=== PATIENT | female | born 1980 | race Caucasian/White ===

== ENCOUNTER → 2018-02-16 14:14 | Outpatient (CLI) | payer OTHER, SELFPAY ==
[2018-02-16 14:40] LABS: Add Manual Diff / Slide Review NO; Basophils Percent Auto 0.3 % (0-2); Eosinophils Percent Auto 1.9 % (2-4); Hematocrit 38.3 % (36-46); Hemoglobin 13.3 g/dL (12.0-16.0); Lymphocytes Percent Auto 20.3 % (25-40); Mean Corpuscular HGB Conc 34.6 % (30-36); Mean Corpuscular Hemoglobin 33.6 PG (26-34); Monocytes Percent Auto 7.6 % (3-14); Neutrophils Absolute Auto 5600 /uL (3000-5900); Neutrophils Percent Auto 69.9 % (50-75); Platelet Count 192 X10^3/uL (150-400); Red Blood Cell Count 3.95 X10^6/uL (4.0-5.2); Red Cell Distribution Width 12.2 % (11.6-14.8); White Blood Cell Count 7.9 X10^3/uL (4.5-11.0)
[2018-02-16 14:43] LABS: Appearance Urine UA SL CLOUDY; Bilirubin Urine UA NEGATIVE (NEGATIVE); Color Urine UA YELLOW; Glucose Urine UA NEGATIVE (Normal); Ketones Urine UA NEGATIVE (NEGATIVE); Leukocyte Esterase Urine UA NEGATIVE (NEGATIVE); Nitrite Urine UA Negative (Negative); Occult Blood Urine UA NEGATIVE (Negative); Protein Urine UA NEGATIVE (Negative); Urobilinogen Urine UA 0.2 E.U./dL (0.2); pH Urine UA 6.5 (4.5-8.0)
[2018-02-16 17:51] LABS: Hepatitis B Surface Antigen NEGATIVE s/c (NEGATIVE)
[2018-02-16 17:52] LABS: Rubella Antibody IgG 13.1 IU/mL (>15)
[2018-02-16 18:07] LABS: HIV 1 and 2 Antibody NEGATIVE (NEGATIVE); Hep C Virus Ab w/Reflex Quant NEGATIVE s/c (NEGATIVE)
[2018-02-19 02:24] LABS: HSV 2 IGG AB < 0.90 index (< 0.90); HSV1IGG < 0.90 index (< 0.90)
[2018-02-24 20:55] LABS: Rapid Plasma Reagin NON-REACTIVE
== END ==
PROVIDERS: Visit Provider Obstetrics & Gynecology
DX: Z34.81 Encounter for supervision of other normal pregnancy, first trimester (principal); Z3A.01 Less than 8 weeks gestation of pregnancy
CPT/HCPCS: 36415; 80055; 81003; 86695; 86696; 86703; 86787; 86803; 86850; 86900; 86901; 87086

== ENCOUNTER → 2018-03-03 11:21 | Outpatient (CLI) | payer OTHER, SELFPAY ==
[2018-03-03 11:38] LABS: Specimen Label NATERA
== END ==
PROVIDERS: Visit Provider Obstetrics & Gynecology
DX: O09.521 Supervision of elderly multigravida, first trimester (principal)
CPT/HCPCS: 36415

== ENCOUNTER → 2018-04-27 12:43 | Outpatient (CLI) | payer OTHER, SELFPAY ==
[2018-05-03 13:42] LABS: AFP, Serum 30.9 ng/mL; Calc Gestational Age 17.9; Est Date Determined by NOT GIVEN; Maternal Weight 192 lbs; Number of Fetuses NOT GIVEN; Prev Pregnancies Down Syndrome N
== END ==
PROVIDERS: Visit Provider Obstetrics & Gynecology
DX: Z34.82 Encounter for supervision of other normal pregnancy, second trimester (principal)
CPT/HCPCS: 36415; 82105

== ENCOUNTER → 2018-05-25 07:33 | Outpatient (CLI) | payer OTHER, SELFPAY ==
--- NOTE | 2018-05-25 07:34 | DI.US.S_ITS ---
PROCEDURE: US OB >= 14 WEEKS FETUS INDICATIONS: anatomy survey OUTSIDE/PRIOR DATING DATA: Last menstrual period (LMP): Unknown. LMP-based estimated date of delivery (RISA): N./A.. First dating scan (date and location): 02/04/18. Estimated date of delivery (RISA) from first dating scan: 09/29/18. TECHNIQUE: Real-time scanning was performed of the fetus, with image documentation and biometric measurements. Endovaginal scanning: No COMPARISON: [facility], , OB <= 14 WEEKS FETUS, 03/28/2018, 14:05. FINDINGS: General: A single living intrauterine gestation is present. Presentation: Breech. Placenta: Placental position is posterior, without previa. Amniotic fluid index: 15.6 cm, normal range is 5-24 cm. heart rate: 141 beats per minute. Maternal cervical canal: 3.0 cm long. Normal lower limit is 2.5 cm. biometrics: Biparietal diameter: 22 weeks 3 days Head circumference: 22 weeks 3 days Abdominal circumference: 22 weeks 4 days Femur length: 23 weeks 1 day Estimated gestational age from initial scan: 21 weeks 6 days Composite gestational age from present scan: 22 weeks 5 days Estimated weight and percentile: 534 g; 88 percentile Measurement variability for biometric dating: +/- 7 days from 14 weeks to 15 weeks 6 days gestation, +/- 10 days from 16 weeks to 21 weeks 6 days gestation, +/- 2 weeks from 22 weeks to 27 weeks 6 days gestation, +/- 3 weeks for 28 weeks gestation or later. weight reference: 4500 g or EFW >90/95% is considered macrosomia or large for gestational age. EFW <10% is small for gestational age. EFW 5% or less is considered intra-uterine growth restriction. Anatomic survey: Neuro: Ventricles are non-dilated at less than 10 mm. Cisterna magna is normal at 3-11 mm. Cerebellum is normal in size and morphology. Nuchal skin fold: Normal at less than 6 mm between 14-21 weeks gestational age. Face: Nose and lips, facial profile are normal. Spine: No evidence for spina bifida. Heart: 4-chambered heart is present, with normal ventricular outflow tracts. Diaphragm: Diaphragm is intact. Stomach: Left-sided stomach is present. Kidneys: No hydronephrosis. Normal is less than 5 mm in 2nd trimester, less than 7 mm in 3rd trimester. Cord: 3-vessel cord has orthotopic insertion. Bladder: Normal in size. Extremities: All 4 extremities identified. IMPRESSION: 1. Single living IUP demonstrated and interval growth is upper limits of normal with estimated weight 88th percentile. 2. Normal anatomic survey. Dictated by: Renny Wolfe [facility] Interpreted: Son Cook MD on 05/25/2018 at 8:44 Approved by: Son Cook M.D. on 05/25/2018 at 10:09
== END ==
PROVIDERS: Visit Provider Obstetrics & Gynecology
DX: Z34.82 Encounter for supervision of other normal pregnancy, second trimester (principal)
CPT/HCPCS: 76811

== ENCOUNTER → 2018-06-07 10:36 | Outpatient (CLI) | payer OTHER, SELFPAY ==
[2018-06-07 12:11] LABS: Hematocrit 37.1 % (36-46); Hemoglobin 12.6 g/dL (12.0-16.0)
[2018-06-07 12:24] LABS: GTT (PREG) 1 Hour PP 50gm Dose 133 mg/dL (76-139)
== END ==
PROVIDERS: PCP Physician Assistant Medical; Visit Provider Obstetrics & Gynecology
DX: Z34.82 Encounter for supervision of other normal pregnancy, second trimester (principal)
CPT/HCPCS: 36415; 82950; 85014; 85018

== ENCOUNTER 2018-06-21 15:00 | Outpatient (CLI) | payer OTHER, SELFPAY ==
[2018-06-21 16:56] LABS: Fetal Fibronectin Negative
== END 2018-06-21 16:15 | disposition home or self-care (01) ==
LOC: LABOR 15:52 → OB 06-23 16:53
PROVIDERS: PCP Physician Assistant Medical; Visit Provider Obstetrics & Gynecology
DX: Z03.71 Encounter for suspected problem with amniotic cavity and membrane ruled out (principal); Z3A.25 25 weeks gestation of pregnancy
CPT/HCPCS: 59025; 59050; 82731; 84112; G0378; G0379

== ENCOUNTER 2018-08-30 11:58 | Outpatient (CLI) | payer OTHER, SELFPAY | END 2018-08-30 12:32 | disposition home or self-care (01) | LOC: LABOR 12:31 → OB 14:11 | PROVIDERS: PCP Physician Assistant Medical; Visit Provider Obstetrics & Gynecology | DX: O26.893 Other specified pregnancy related conditions, third trimester (principal); R10.30 Lower abdominal pain, unspecified; Z3A.35 35 weeks gestation of pregnancy | CPT/HCPCS: 59025; G0378; G0379 ==

== ENCOUNTER → 2018-09-06 11:25 | Outpatient (CLI) | payer OTHER, SELFPAY ==
[2018-09-07 09:35] LABS: Strep Grp B PCR POS for Grp B Strep
== END ==
PROVIDERS: PCP Physician Assistant Medical; Visit Provider Obstetrics & Gynecology
DX: Z34.83 Encounter for supervision of other normal pregnancy, third trimester (principal)
CPT/HCPCS: 87653

== ENCOUNTER 2018-09-06 12:12 | Outpatient (CLI) | payer OTHER, SELFPAY ==
--- NOTE | 2018-09-06 18:27 | PM.OBTRLD ---
Visit Information Visit Information Date of evaluation: 09/06/18 Primary OB Provider: Marianne Bronson Reason for Evaluation: Yes non-stress test non-stress test reason: decreased movement PFSH Social History Smoking Status: Never smoker Social History Smoking Status: Never smoker Evaluation Evaluation Baseline heart rate: 135 Variability: Moderate (11-25) monitor accelerations: Present monitor decelerations: Absent Category of Tracing: I Diagnosis, Plan/Disposition Final Diagnosis (1) 36 weeks gestation of : Current Visit: Yes Status: Acute (2) Decreased movement affecting management of mother, antepartum: Current Visit: Yes Status: Acute Plan/Disposition Plan: Discharge to home Follow up 1 week [facility] Disposition: home
== END 2018-09-06 12:45 | disposition home or self-care (01) ==
LOC: LABOR 12:30 → OB 09-07 13:55
PROVIDERS: PCP Physician Assistant Medical; Visit Provider Obstetrics & Gynecology
DX: O36.8130 Decreased fetal movements, third trimester, not applicable or unspecified (principal); Z3A.36 36 weeks gestation of pregnancy
CPT/HCPCS: 59025; 87653; G0378; G0379

== ENCOUNTER 2018-09-09 08:25 | Outpatient (CLI) | payer OTHER, SELFPAY | END 2018-09-09 09:25 | disposition home or self-care (01) | LOC: OB 12:33 | PROVIDERS: PCP Physician Assistant Medical; Visit Provider Obstetrics & Gynecology | DX: O47.1 False labor at or after 37 completed weeks of gestation (principal); Z3A.37 37 weeks gestation of pregnancy | CPT/HCPCS: 59025; 84112; G0378; G0379 ==

== ENCOUNTER 2018-09-13 15:14 | Outpatient (CLI) | payer OTHER, SELFPAY | END 2018-09-13 16:15 | disposition home or self-care (01) | LOC: LABOR 16:11 → OB 09-15 10:47 | PROVIDERS: PCP Physician Assistant Medical; Visit Provider Obstetrics & Gynecology | DX: O36.8130 Decreased fetal movements, third trimester, not applicable or unspecified (principal); Z3A.37 37 weeks gestation of pregnancy | CPT/HCPCS: 59025; G0378; G0379 ==

== ENCOUNTER 2018-09-21 06:51 | Inpatient (IN) | payer OTHER, SELFPAY ==
[2018-09-21] MEDS: LACTATED RINGERS 1,000 ML 100 ML IV ×2 (08:29→11:53)
[2018-09-21] MEDS: OXYTOCIN PREMIX 30 UNIT/500 ML PLAST..BAG IV (08:29)
[2018-09-21] MEDS: PENICILLIN G POTASSIUM 5,000,000 UNIT in DEXTROSE 5% IN WATER 250 ML IV (08:31)
[2018-09-21 08:32] LABS: Add Manual Diff / Slide Review NO; Basophils Absolute Auto 0 /uL (0-100); Basophils Percent Auto 0.2 % (0-2); Eosinophils Absolute Auto 100 /uL (0-450); Eosinophils Percent Auto 0.6 % (2-4); Hematocrit 34.7 % (36-46); Lymphocytes Absolute Auto 1300 /uL (1100-4500); Mean Corpuscular HGB Conc 34.7 % (30-36); Mean Corpuscular Hemoglobin 31.8 PG (26-34); Mean Corpuscular Volume 91.6 fL (80-100); Monocytes Absolute Auto 600 /uL (0-900); Monocytes Percent Auto 6.8 % (3-14); Neutrophils Absolute Auto 6200 /uL (1500-7000); Neutrophils Percent Auto 76.4 % (50-75); Platelet Count 152 X10^3/uL (150-400); Red Blood Cell Count 3.79 X10^6/uL (4.0-5.2); Red Cell Distribution Width 14.1 % (11.6-14.8); White Blood Cell Count 8.2 X10^3/uL (4.5-11.0)
[2018-09-21 08:34] VITALS: BP 120/71
[2018-09-21] MEDS: PENICILLIN G POTASSIUM 3,000,000 UNIT/50 ML FROZ.PIGGY 100 UNIT IV ×2 (12:32→18:36)
--- NOTE | 2018-09-21 18:58 | PM.OBHP.1 ---
OB HPI Date/Time Date of admission: 09/21/18 Date Patient Seen: 09/21/18 Time Patient Seen: 07:40 History of Present Condition Chief complaint: labor & delivery : 3 Para: 2 Estimated Date of Delivery: 09/29/18 Estimated Gestational Age (weeks): 39 Narrative: Ирина Galaviz is a 37 year old female 3 para 2 at estimated gestational age of 39 weeks gestation for induction of labor due to advanced maternal age Indications Indication for induction OB: other (advanced maternal age) History of Present care: good care, initiated at week # (8), number of visits (9) and pounds weight gain (14) Dating criteria: LMP confirmed by 1st trimester US Ultrasounds: normal 1st trimester US and normal mid trimester US Obstetrical complications: none Medical complications: none Preadmission Labs Blood type: O (+) positive -: Antibody screen: negative, GBS status: positive, HBsAG: negative, HIV: negative, HSV 1: negative, HSV 2: negative and RPR/VDLR: negative -: Chlamydia screen: not detected and Gonorrhea screen: not detected -: Rubella: not immune and Varicella: immune HCT: 37.1 HCAB: reactive PAP: Normal Cell-free DNA: normal Urine: negative 1 hr GTT: 133 Prior (ies) History: 2 Evaluation Evaluation Baseline heart rate: 135 Variability: Moderate (11-25) monitor accelerations: Present monitor decelerations: Absent Contraction Frequency (minutes): 8 Uterine Contraction Intensity: Mild Category of Tracing: I Cervical dilation (cm): 2 station: -1 Laboratory results: Laboratory Tests 09/21/18 09/21/18 07:45 07:45 WBC 8.2 RBC 3.79 L Hgb 12.0 Hct 34.7 L MCV 91.6 MCH 31.8 MCHC 34.7 RDW 14.1 Plt Count 152 Neut % (Auto) 76.4 H Lymph % (Auto) 16.0 L [place] % (Auto) 6.8 Eos % (Auto) 0.6 L Baso % (Auto) 0.2 Neut # (Auto) 6200 Lymph # (Auto) 1300 [place] # (Auto) 600 Eos # (Auto) 100 Baso # (Auto) 0 Blood Type O Positive Antibody Screen Negative PFSH Social History Smoking Status: Former smoker Social History Smoking Status: Former smoker Meds Home Medications Medication Instructions Recorded Confirmed Type vitamins no.68-iron 28 1 cap PO DAILY #30 cap 02/04/18 09/21/18 Rx mg-folate no.6 1 mg-dha 400 mg capsule breast pump #1 each 07/19/18 09/21/18 Rx Allergies Allergy/AdvReac Type Severity Reaction Status Date / Time NSAIDS (Non-Steroidal Allergy Mild Anaphylaxis Verified 02/16/18 14:28 Anti-Inflamma Exam Vital Signs (past 8 hours): Generally: No acute distress Lungs: Clear to auscultation bilaterally Cardiovascular: Regular rate and rhythm Fundal height: 40 cm Estimated weight 8-1/2 lb Extremities: Negative Homans, no edema Objective Labs Result Diagrams: 09/21/18 07:45 Labs: Laboratory Results - last 24 hr 09/21/18 09/21/18 07:45 07:45 WBC 8.2 RBC 3.79 L Hgb 12.0 Hct 34.7 L MCV 91.6 MCH 31.8 MCHC 34.7 RDW 14.1 Plt Count 152 Neut % (Auto) 76.4 H Lymph % (Auto) 16.0 L [place] % (Auto) 6.8 Eos % (Auto) 0.6 L Baso % (Auto) 0.2 Neut # (Auto) 6200 Lymph # (Auto) 1300 [place] # (Auto) 600 Eos # (Auto) 100 Baso # (Auto) 0 Blood Type O Positive Antibody Screen Negative Assessment and Plan Assessment and Plan Assessment and Plan narrative: Assessment: 37-year-old 3 para 2 at estimated gestational age of 39 weeks gestation for induction of labor due to advanced maternal age GBS positive Plan: GBS prophylaxis Pitocin per protocol 2 Epidural as necessary Rupture of membranes mid morning Expected management to spontaneous vaginal delivery Time Spent with Patient Total time spent with greater than 50% in coordination of care (as documented) at patient's floor/unit and/or counseling patient:: 15-24 minutes
--- NOTE | 2018-09-21 19:08 | PM.OBPRVD ---
Delivery date: 09/21/18 Intrapartal events: Intolerance Cervical ripening method: none Induction method: per pitocin protocol Delivery augmentation: rupture of membranes Delivery monitor: external FHT and external uterine Route of delivery: vacuum extraction Indication for instrumentation: nonreassuring FHR tracing (deep variable decelerations) Episiotomy description: None L&D Laceration Description: None Estimated blood loss (mL): 150 Anesthesia type: Epidural Complications: None Narrative: Patient complete and pushed for about 20 minutes. At 5:37 p.m., a live female delivered with vacuum assistance over an intact perineum. The vacuum was placed due to deep variable decelerations with pushing. No nuchal cord. The remainder of the body delivered without difficulty and was placed on mom's abdomen. after the cord stopped pulsing, the cord was double clamped and cut. Cord bloods were obtained. The placenta delivered intact with a 3 vessel cord at 5:47 p.m.. Pitocin was given in the IV fluids before the placenta delivered. Estimated blood loss 150 cc. Apgars 9 at 1 minute and 9 at 5 minutes. No perineal or vaginal tears. Epidural analgesia. . Mom and infant stable to recovery.
[2018-09-22] MEDS: OXYCODONE/ACETAMINOPHEN 5/325 TABLET 1 TAB PO ×2 (01:15→07:16)
[2018-09-22 07:03] LABS: Hematocrit 37.2 % (36-46); Hemoglobin 12.8 g/dL (12.0-16.0)
[2018-09-22] MEDS: DOCUSATE 250 MG CAPSULE PO (09:32)
[2018-09-22] MEDS: OXYCODONE/ACETAMINOPHEN 5/325 TABLET 2 TAB PO ×2 (12:34→16:18)
[2018-09-22 16:05] VITALS: BP 120/69; PULSE 62; RESP 16; TEMP 37
[2018-09-22] MEDS: MEASLES,MUMPS,RUBELLA VACC/PF 0.5 ML VIAL SUBCUT (17:50)
--- NOTE | 2018-09-25 20:10 | PM.OBDS.1 ---
Discharge Providers Date of admission: 09/21/18 06:51 Discharge Date: 09/22/18 Primary care physician: Anita Suarez PA-C Consults: 09/21/18 18:38 Consult to Merchandising Manager Routine Comment: Discharge provider: Marianne Bronson MD Summary Date Patient Seen: 09/22/18 Time Patient Seen: 10:30 Procedures: Induction of labor with Pitocin Artificial rupture of membranes Spontaneous vaginal delivery Epidural analgesia 39 weeks gestation Hospital Course: The patient was admitted on 09/21/2018 for a scheduled induction of labor. She was started on Pitocin. Artificial rupture of membranes was performed. An epidural was placed for pain management. She had a spontaneous vaginal delivery without complications. Peripartum Data Delivery Method: Natural Vaginal Laceration description: None Episiotomy description: None Procedures: Induction of labor with Pitocin Artificial rupture of membranes Epidural analgesia Spontaneous vaginal delivery complications: none Status at Discharge Cognitive/behavioral status at discharge: oriented Functional status at discharge: independent ambulation Overall status at discharge: patient is progressing back to baseline Time Spent with Patient Total time spent providing and/or coordinating discharge services: Less than 30 minutes Objective Labs Result Diagrams: 09/22/18 06:47 Exam Vital Signs (past 8 hours): Generally: Patient sitting up in bed, no acute distress Fundus: Firm at U -1 Extremities: Negative Homans, no edema Discharge Plan Discharge Plan Patient Disposition: Home Discharge comment: Call with fever, chills or bleeding vaginally more than a pad in an hour Discharge Med Rec/Prescriptions Prescriptions: New oxycodone-acetaminophen [Percocet] 5-325 mg tablet 1 tab PO Q4-6H PRN (Reason: pain) Qty: 20 RF: 0 docusate sodium 250 mg capsule 250 mg PO DAILY Qty: 20 RF: 3 Continued [id number] no6-dha 28 mg iron- 1 mg-400 mg capsule 1 cap PO DAILY Qty: 30 RF: 8 No Action breast pump [Pump In Style Advanced] device .ROUTE .MEDSUPPLY Qty: 1 RF: 0 Follow up/Referrals: Marianne Bronson MD [Physician] - 10/26/18 8:00 am (Appointment with on at 8:00am) Provider Discharge Instructions Diet: Regular Activity: No intercourse Skin/Wound/Dressing Care Report to your healthcare provider any signs of infection, such as:: chills, fever, increased pain and unusual drainage Visit Report/Discharge Packet Instructions: DI for Labor and Delivery, Vaginal Stand Alone Forms: Discharge: Care Discharge Data Primary Care Provider: Anita Suarez Attending Provider: Marianne Bronson Admit Date/Time: 09/21/18 06:51 Discharges patient from system. Discharge Date/Time: 09/22/18 18:07
== END 2018-09-22 18:07 | disposition home or self-care (01) | DRG 807 ==
PROVIDERS: Admitting Provider Obstetrics & Gynecology; PCP Physician Assistant Medical; Visit Provider Obstetrics & Gynecology
DX: O99.824 Streptococcus B carrier state complicating childbirth (principal); Z37.0 Single live birth; Z3A.39 39 weeks gestation of pregnancy; O76 Abnormality in fetal heart rate and rhythm complicating labor and delivery
CPT/HCPCS: 01967; 36415; 59050; 59400; 85014; 85018; 85025; 86850; 86900; 86901; G0379; J2540; J2590

== ENCOUNTER → 2021-12-30 09:31 | Outpatient (CLI) | payer OTHER, SELFPAY ==
--- NOTE | 2021-12-30 | DI.MG.S_ITS ---
UNILATERAL RIGHT DIGITAL DIAGNOSTIC MAMMOGRAM 3D/2D WITH ADDITIONAL VIEWS: 12/30/2021 CLINICAL: Additional evaluation requested from prior study. Comparison is made to exam dated: 10/06/2021 mammogram - [facility]. There are scattered fibroglandular elements in right breast. There is a benign 0.8 cm oval fat containing lymph node in the right breast at 6 o'clock middle depth. This is seen in additional views. No other significant masses or calcifications are seen in the breast. IMPRESSION: BENIGN There is no mammographic evidence of malignancy. Right breast mass at 7:00 is consistent with a benign lymph node. A 1 year screening mammogram is recommended. Exam findings were conveyed to the patient. Based on the Tyrer Cuzick model (a risk assessment model) the patient's lifetime risk is 7.0% and her 10 year risk is 0.9%. According to the ACR, ACS, and NCCN guidelines, an annual breast MRI exam along with mammogram is recommended if the patient's lifetime risk is 20% or greater. This exam was interpreted at Station ID: [id number]. NOTE: For mammograms, a report in lay terms will be sent to the patient. Approximately 15% of breast malignancies will not be visualized mammographically. In the management of a palpable breast mass, a negative mammogram must not discourage biopsy of a clinically suspicious lesion. Electronically Signed By: Frederick Cali M.D. [facility] [place]/:12/30/2021 10:20:19 letter sent: Normal Exam ACR BI-RADS Category 2: Benign Finding(s) [id number]
== END ==
PROVIDERS: PCP Physician Assistant Medical; Referring Provider Physician Assistant Medical; Visit Provider Physician Assistant Medical
DX: R92.8 Other abnormal and inconclusive findings on diagnostic imaging of breast (principal); R59.0 Localized enlarged lymph nodes
CPT/HCPCS: 77065; G0279